=== PATIENT | male | born 1990 | race Caucasian/White ===

== ENCOUNTER 2017-04-07 12:05 | Emergency (ER) | payer OTHER ==
[2017-04-07 12:40] VITALS: BP 128/71; PULSE 77; RESP 15; TEMP 98.2; O2SAT 99
[2017-04-07] MEDS ORDERED: Naproxen 500 MG TAB PO ONE (13:23)
--- NOTE | 2017-04-07 13:33 | ED PDOC ---
HPI: Headache Time Seen by Provider: 04/07/17 12:25 Chief Complaint (Nursing): Headache Chief Complaint (Provider): Headache History Per: Patient History/Exam Limitations: no limitations Onset/Duration Of Symptoms: Days (x7 years ago), Worse Since (x1 month) Current Symptoms Are (Timing): Still Present Associated Symptoms: Nausea, Other (lightheadedness). denies: Photophobia Additional Complaint(s): Santosh Yanes is a 26 year old male, with a past medical history of internal bleeding in brain x7 years ago, who presents to the emergency department complaining of a worsening headache associated with lightheadedness and nausea onset for the past month. Patient reports 7 years ago back [facility], he fell of a ladder and was hospitalized for a month due to an internal bleeding in brain, since then he has had mild headaches. However for the past month patient states the headaches have been much stronger and occur almost daily, mostly on the left side and occipital region. He denies any fever, cough, recent trauma or injury, photosensitivity, thunderclap headache or worst headache of life, vomiting, URI symptoms or subjective neurologic symptoms. PMD: None provided. Past Medical History Reviewed: Historical Data, Nursing Documentation, Vital Signs Vital Signs: Last Vital Signs Temp 98.2 F 04/07/17 12:37 Pulse 77 04/07/17 12:37 Resp 15 04/07/17 12:37 BP 128/71 04/07/17 12:37 Pulse Ox 99 04/07/17 12:37 - Medical History PMH: No Chronic Diseases - Surgical History Other surgeries: brain internal bleed. - Family History Family History: States: Unknown Family Hx - Social History Current smoker - smoking cessation education provided: No Alcohol: None Drugs: Denies - Home Medications Home Medications: Ambulatory Orders Medication Instructions Recorded Ondansetron [Zofran] 4 mg PO Q8H #10 tab 07/26/14 Albuterol HFA [Ventolin HFA 90 1 puff IH ASDIR #1 unit 12/19/14 mcg/actuation (8 g)] Azithromycin [Zithromax Z-Travis] 250 mg PO DAILY #1 packet 12/19/14 Benzonatate [Tessalon Perles] 200 mg PO Q8H PRN #30 tab 12/19/14 Metoclopramide HCl [Reglan] 10 mg PO QID PRN #20 tablet 04/07/17 Naproxen 500 mg PO BID PRN #20 tablet 04/07/17 - Allergies Allergies/Adverse Reactions: Allergies Allergy/AdvReac Type Severity Reaction Status Date / Time No Known Allergies Allergy Verified 12/19/14 15:45 Review of Systems ROS Statement: Except As Marked, All Systems Reviewed And Found Negative Constitutional: Negative for: Fever, Other (trauma) Eyes: Negative for: Vision Change, Other (photophobia) Cardiovascular: Positive for: Light Headedness Respiratory: Negative for: Cough Gastrointestinal: Positive for: Nausea. Negative for: Vomiting Neurological: Positive for: Headache Physical Exam - Reviewed Nursing Documentation Reviewed: Yes Vital Signs Reviewed: Yes - Physical Exam Comments: GENERAL APPEARANCE: Patient is awake, alert, oriented x 3, in no acute distress. SKIN: Warm, dry; (-) cyanosis; (-) rash. HEAD: (-) scalp swelling or tenderness, (-) temporal artery tenderness. EYES: (-) conjunctival pallor, (-) scleral icterus. ENMT: (-) sinus tenderness; mucous membranes moist. NECK: (-) tenderness, (-) stiffness, (-) meningismus, (-) lymphadenopathy. CHEST AND RESPIRATORY: (-) rales, (-) rhonchi, (-) wheezes; breath sounds equal bilaterally. HEART AND CARDIOVASCULAR: (-) irregularity; (-) murmur, (-) gallop. ABDOMEN AND GI: Soft; (-) tenderness. EXTREMITIES: (-) deformity. NEURO AND PSYCH: Mental status as above. 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 Strength and DTRs symmetric. Babinski normal bilaterally. - ECG O2 Sat by Pulse Oximetry: 99 (RA) Pulse Ox Interpretation: Normal Medical Decision Making Medical Decision Making: Initial Impression: headache Initial Plan: --Head w/o contrast [CT] --Reglan 10 mg PO --Naproxen 500 mg PO --reevaluation CT HEAD : FINDINGS: HEMORRHAGE: No acute parenchymal, subarachnoid nor extra-axial hemorrhage. BRAIN: No evidence of large acute infarct. No obvious parenchymal nor extra-axial mass seen on this noncontrast study. The small arachnoid cyst inferomedial aspect left middle cranial fossa. VENTRICLES: No obstructive hydrocephalus. CALVARIUM: No acute calvarial fractures. PARANASAL SINUSES: Mild mucoperiosteal inflammatory changes seen within the ethmoid air complex extending. There is also some minimal mucosal thickening in the sphenoid sinus right chamber sphenoid sinus MASTOID AIR CELLS: Unremarkable as visualized. No inflammatory changes. OTHER FINDINGS: None. IMPRESSION: No evidence of acute intracranial hemorrhage or large acute infarct. Small arachnoid cyst inferomedial aspect left middle cranial fossa. On re-evaluation, patient reports improvement of symptoms, denies headache or nausea at this time. On exam, patient remains AAOx3, in no acute distress. On exam, neck is supple, neuro exam shows no focal findings. Diagnostic results d/w the patient in great detail. Dx of possible migraine headache d/w the patient. Based on history, exam and diagnostic results plan will be for outpatient f/u. Advised to follow up with the clinic in 1-2 days without fail. Advised to take medication as prescribed. Return to the emergency room at any time for any new or worsening symptoms. Patient states he fully agrees with and understands discharge instructions. States that he agrees with the plan and disposition. Verbalized and repeated discharge instructions and plan. I have given the patient opportunity to ask any additional questions. ~ Scribe Attestation: Documented by Wallace Merchant, acting as a scribe for Chata Davis PA-C. Provider Scribe Attestation: All medical record entries made by the Scribe were at my direction and personally dictated by me. I have reviewed the chart and agree that the record accurately reflects my personal performance of the history, physical exam, medical decision making, and the department course for this patient. I have also personally directed, reviewed, and agree with the discharge instructions and disposition. Disposition - Clinical Impression Clinical Impression: Headache, Migraine - Patient ED Disposition Is Patient to be Admitted: No Counseled Patient/Family Regarding: Studies Performed, Diagnosis, Need For Followup, Rx Given - Disposition Referrals: [facility] [Outside] Disposition: Routine/Home Disposition Time: 15:00 Condition: IMPROVED Additional Instructions: Thank you for letting us take care of you today. You were treated for headache, possible migraine. The emergency medical care you received today was directed at your acute symptoms. If you were prescribed any medication, please fill it and take as directed. It may take several days for your symptoms to resolve. Return to the Emergency Department if your symptoms worsen, do not improve, or if you have any other problems. Please call one of the physicians/clinics you have been referred to that are listed on the Patient Visit Information form that is included in your discharge packet. Bring any paperwork you were given at discharge with you along with any medications you are taking to your follow up visit. Our treatment cannot replace ongoing medical care by a primary care provider (PCP) outside of the emergency department. Thank you for allowing the [facility] team to be part of your care today. If you had a CT scan: A Radiologist will review the ED reading if any change in treatment is needed we will contact you. Follow up CT abnormality with the clinic. Prescriptions: Metoclopramide HCl [Reglan] 10 mg PO QID PRN #20 tablet PRN Reason: Headache Naproxen 500 mg PO BID PRN #20 tablet PRN Reason: Pain, Moderate (4-7) Instructions: Headache, Adult (DC), Migraine Headache (DC) Forms: Proenza Schouer (Mongolian), [facility] School/Work Excuse Print Language: IRISH - PA / ADDICTION PSYCHIATRIST / Resident Statement MD/DO has reviewed & agrees with the documentation as recorded.
[2017-04-07] MEDS: Naproxen 500 MG TAB PO STA (13:34)
--- NOTE | 2017-04-07 14:41 | CT ---
PROCEDURE: CT scan of brain dated 04/07/2017. . HISTORY: Headache. COMPARISON: No prior study available for comparison TECHNIQUE: Contiguous helical/transaxial computed tomography images were obtained through the head/brain without intravenous contrast. Radiation dose: Total exam DLP = 776.24 mGy-cm. This CT exam was performed using one or more of the following dose reduction techniques: Automated exposure control, adjustment of the mA and/or kV according to patient size, and/or use of iterative reconstruction technique. FINDINGS: HEMORRHAGE: No acute parenchymal, subarachnoid nor extra-axial hemorrhage. BRAIN: No evidence of large acute infarct. No obvious parenchymal nor extra-axial mass seen on this noncontrast study. The small arachnoid cyst inferomedial aspect left middle cranial fossa. VENTRICLES: No obstructive hydrocephalus. CALVARIUM: No acute calvarial fractures. PARANASAL SINUSES: Mild mucoperiosteal inflammatory changes seen within the ethmoid air complex extending. There is also some minimal mucosal thickening in the sphenoid sinus right chamber sphenoid sinus MASTOID AIR CELLS: Unremarkable as visualized. No inflammatory changes. OTHER FINDINGS: None. IMPRESSION: No evidence of acute intracranial hemorrhage or large acute infarct. Small arachnoid cyst inferomedial aspect left middle cranial fossa.
== END 2017-04-07 15:18 | disposition home or self-care (01) ==
LOC: H.ER 12:05
DX: G43.909 Migraine, unspecified, not intractable, without status migrainosus (principal)